=== PATIENT | male | born 1950 | race Caucasian/White ===

== ENCOUNTER 2017-06-29 09:49 | Day surgery (SDC) | payer MEDICARE, BC ==
[2017-06-29] MEDS ORDERED: FENTANYL PF 100MCG/2ML VIAL IV ONE (09:50)
[2017-06-29] MEDS ORDERED: PROPOFOL 10 MG/ML VIAL IV ONE (09:50)
[2017-06-29] MEDS ORDERED: LIDOCAINE 2% MDV (20MG/ML) 20ML VIAL IV ONE (09:50)
[2017-06-29] MEDS ORDERED: EPHEDRINE SULFATE 50 MG/ML ML IV ONE (09:50)
--- NOTE | 2017-06-29 14:31 | Operative Note ---
DATE OF SURGERY: 06/29/2017 OPERATION: 1. ESOPHAGOGASTRODUODENOSCOPY with biopsy. 2. COLONOSCOPY with cold snare and cold forceps polypectomies. PREOPERATIVE DIAGNOSIS: Colon cancer screening and dyspepsia. POSTOPERATIVE DIAGNOSES: 1. 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 2. Colon polyps. PROCEDURE: After informed consent was obtained from the patient, he was placed in the left lateral decubitus position in the endoscopy suite, sedated and monitored by the department of anesthesia. A well-lubricated PWX207 gastroscope was placed in the posterior oropharynx and under direct visualization passed to the proximal esophagus. The endoscope was advanced through the proximal, mid, and distal esophagus. The distal esophagus demonstrated proximal migration of columnar border in irregular fashion consistent with short-segment Higgins's. There were inflammatory changes noted as well. The gastric body demonstrated normal distensibility. The antrum demonstrated flecks of heme as well as patchy erythema. The duodenal bulb and sweep were unremarkable. J-turn views of the proximal stomach were unremarkable. The endoscope was straightened and antral biopsies obtained. GE junction biopsies obtained. The endoscope removed from the patient with no new findings noted. Digital rectal exam was unremarkable. A well-lubricated PNS505 colonoscope was inserted into the rectum and advanced to the cecum. The cecum, cecal bulb, ileocecal valve, appendiceal orifice, and ascending colon were unremarkable. The distal transverse colon revealed 3 sessile polyps ranging in size from 3 to 5 to 6 mm all removed with a cold snare. Minimal bleeding was noted. There was a 5-6 mm sessile polyp in the descending colon removed with a cold snare. In the sigmoid colon there was a diminutive polyp removed with a cold forceps. The remainder of the sigmoid colon, descending, transverse colon, and rectum were unremarkable. J-turn views of the anorectum were unrevealing. The endoscope was straightened, the rectal ampulla deflated, and the endoscope was removed. RECOMMENDATIONS: I would suggest switching the patient to a proton pump inhibitor from an H2 receptor antagonist. He will require repeat colonoscopy in 3-5 years pending tissue histology. If Higgins's is found, a repeat upper endoscopy in 3 years would likely be recommended. As always, thank you for allowing me to participate in the healthcare of your patients. CC: Dr. Jersey CABA
== END 2017-06-29 11:50 | disposition home or self-care (01) ==
LOC: HOP 09:49
PROVIDERS: ATTEND Internal Medicine Gastroenterology
DX: Z12.11 Encounter for screening for malignant neoplasm of colon (principal); K29.50 Unspecified chronic gastritis without bleeding; K31.89 Other diseases of stomach and duodenum
CPT/HCPCS: 88305; 88313; 45385; 43239; 00810; J3010